=== PATIENT | female | born 1980 | race Caucasian/White ===

== ENCOUNTER 2022-01-22 09:09 | Outpatient (CLI) | payer BC, MEDICAID, SELFPAY ==
--- NOTE | 2022-01-22 10:15 | CRLHL7_ITS ---
For Patients: As a result of the Century Cures Act, medical imaging exams and procedure reports are released immediately into your electronic medical record. You may view this report before your referring provider. If you have questions, please contact your health care provider. INDICATION: DUB. 45 DAYS. *s/p endometrial biopsy procedure before ultrasound today COMPARISON: none TECHNIQUE: 2D arvizu scale and color Doppler images were acquired of the pelvis using a transabdominal and transvaginal approach. FINDINGS: Sonographic images demonstrate a normal size and smooth outer contour of the uterus. Uterus measures 8.2 cm in length by 3.8 cm in AP diameter by 4.5 cm in transverse dimension. The myometrium has a heterogeneous echotexture. Post endometrial biopsy changes. Endometrial thickness 10 millimeters. Cervical nabothian cysts. Hypoechoic circumscribed lesion within the posterior/left uterus extending into the endometrial canal measuring 1.3 x 1.1 x 1.1 cm. The right ovary measures 3.0 x 2.2 x 2.7 cm in size and the left ovary measures 1.9 x 1.7 x 1.6 cm. The ovaries demonstrate normal arterial and venous blood flow on color Doppler analysis. There are no suspicious fluid collections within the cul-de-sac. IMPRESSION: Submucosal fibroid measuring 1.3 cm. Post endometrial biopsy changes. Dictated by Sal Martins MD @ 01/22/2022 11:07:22 AM (Electronically Signed)
== END 2022-01-22 09:10 | disposition home or self-care (01) ==
LOC: US 09:10
PROVIDERS: Visit Provider Physician Assistant
DX: N93.8 Other specified abnormal uterine and vaginal bleeding (principal); D25.9 Leiomyoma of uterus, unspecified
CPT/HCPCS: 76830; 76856; 84443

== ENCOUNTER 2023-08-24 08:25 | Outpatient (CLI) | payer BC, SELFPAY ==
--- OUTSIDE RECORDS SUMMARY | 2023-08-25 08:17 | XMS_ITS | Referral Summary ---
Author Organization [facility] Address [address] [place] [address] Care Team Providers Care Production Support Engineer Name Role Phone No Ref-Primary, Physician Primary Care Provider Allergies No known active allergies Medications Medication Sig Dispensed Refills Start Date End Date Status buPROPion (WELLBUTRIN XL) 300 MG 24 hr tablet Take 300 mg by mouth daily 06/16/2021 Active methylphenidate (RITALIN) 10 MG tablet TAKE 1 TABLET BY MOUTH 2 TIMES DAILY. *FILL ON OR AFTER 02/18/21 02/24/2021 Active sulfamethoxazole-trim ethoprim (BACTRIM DS) 800-160 MG tablet Take 1 tablet by mouth 2 times daily 07/29/2021 Active lidocaine (XYLOCAINE) 2 % external gelIndications:Urethr itis Apply topically 3 times daily as needed for moderate pain 30 mL 3 08/02/2021 Active Active Problems Problem Noted Date Diagnosed Date CARDIOVASCULAR SCREENING; LDL GOAL LESS THAN 160 01/20/2014 Immunizations Name Administration Dates Next Due Influenza (H1N1) 01/04/2009 Social History Tobacco Use Types Packs/Day Years Used Date Smoking Tobacco: Never Smokeless Tobacco: Never Alcohol Use Standard Drinks/Week Comments Yes 0 (1 standard drink = 0.6 oz pur e alcohol) Adolescent Education Answer Date Record ed Getting School Help Needed Not on file 12/01 Sex and Gender Information Value Date Recorded Sex Assigned at Not on file Gender Identity Not on file Sexual Orientation Not on file Last Filed Vital Signs Vital Sign Reading Time Taken Comments Blood Pressure 118/84 08/02/2021 7:36 PM CDT Pulse 73 08/02/2021 7:36 PM CDT Temperature 35.9 ??C (96.7 ??F) 08/02/2021 7:36 PM CD T Respiratory Rate 16 01/17/2014 4:29 PM ORACLE DISTRIBUTION CONSULTANT Oxygen Saturation 98% 08/02/2021 7:36 PM CDT Inhaled Oxygen Concentration - - Weight 82.6 kg (182 lb 3 oz) 01/17/2014 4:29 PM ORACLE DISTRIBUTION CONSULTANT Height 157.5 cm (5' 2) 01/17/2014 4:29 PM ORACLE DISTRIBUTION CONSULTANT Body Mass Index 33.32 01/17/2014 4:29 PM ORACLE DISTRIBUTION CONSULTANT Plan of Treatment Not on file Care Teams Production Support Engineer Relationship Specialty Start Date End Date No Ref-Primary, Physician PCP - General 08/02/21
--- OUTSIDE RECORDS SUMMARY | 2023-08-25 08:17 | XMS_ITS | Clinical Summary ---
Author Organization [place] Address [address] [place] [address] Care Team Providers Care Dental Technician Name Role Phone No Ref-Primary, Physician Primary [...] Administration Dates Next Due Influenza (H1N1) 01/04/2009 Family History Medical History Relation Comments Hypertension Father Relation Status Comments Father Alive Mother Alive Social History Tobacco Use Types Packs/Day Years [...] T Respiratory Rate 16 01/17/2014 4:29 PM BEHAVIORAL HEALTH PROFESSIONAL Oxygen Saturation 98% 08/02/2021 7:36 PM CDT Inhaled Oxygen Concentration - - Weight 82.6 kg (182 lb 3 oz) 01/17/2014 4:29 PM BEHAVIORAL HEALTH PROFESSIONAL Height 157.5 cm (5' 2) 01/17/2014 4:29 PM BEHAVIORAL HEALTH PROFESSIONAL Body Mass Index 33.32 01/17/2014 4:29 PM BEHAVIORAL HEALTH PROFESSIONAL Plan of Treatment Health Maintenance Due Date Last Done Comments ADVANCE CARE PLANNING 1978 ANNUAL REVIEW OF HM ORDERS 1978 CT COLONOGRAPHY 1978 FIT 1978 FLEX SIG 1978 GLUCOSE 1978 MAMMO SCREENING 1978 YEARLY PREVENTIVE VISIT 1978 sDNA (Cologuard) 1978 COLONOSCOPY 1988 COLORECTAL CANCER SCREENING 1988 HIV SCREENING 1993 HEPATITIS C SCREENING 1996 HEPATITIS B IMMUNIZATION (1 of 3 - 19+ 3-dose series) 1997 PAP 08/12/1999 DTAP/TDAP/TD IMMUNIZATION (1 - Tdap) 08/12/2003 LIPID 2018 COVID-19 Vaccine (1 - 2022-2 4 season) 2022 PHQ-2 (once per calendar year) 2023 INFLUENZA VACCINE (#1) 2023 01/04/2009 HPV IMMUNIZATION Aged Out No longer e ligible based on patient's age to complete this topic IPV IMMUNIZATION Aged Out No longer e ligible based on patient's age to complete this topic MENINGITIS IMMUNIZATION Aged Out No l onger eligible based on patient's age to complete this topic Pneumococcal Vaccine: Pediat rics (0 to 5 Years) and At-Risk Patients (6 to 64 Years) Aged Out No longer eligi ble based on patient's age to complete this topic RSV MONOCLONAL ANTIBODY Aged Out No l onger eligible based on patient's age to complete this topic Care Teams Dental Technician Relationship Specialty Start Date End Date No Ref-Primary, Physician PCP - General 08/02/21
== END 2023-08-24 08:26 | disposition home or self-care (01) ==
LOC: NFLDREF 08-25 08:15
PROVIDERS: PCP Physician Assistant Medical; Referring Provider Physician Assistant Medical; Visit Provider Physician Assistant Medical
DX: I10 Essential (primary) hypertension (principal); E66.01 Morbid (severe) obesity due to excess calories; Z68.41 Body mass index [BMI] 40.0-44.9, adult
CPT/HCPCS: 80053; 80061; 84443

== ENCOUNTER 2023-11-22 15:59 | Outpatient (CLI) | payer BC, SELFPAY ==
--- NOTE | 2023-11-22 16:00 | CRLHL7_ITS ---
For Patients: As a result of the Century Cures Act, medical imaging exams and procedure reports are released immediately into your electronic medical record. You may view this report before your referring provider. If you have questions, please contact your health care provider. CLINICAL HISTORY: Abnormal uterine bleeding TECHNIQUE: 2D arvizu scale and color Doppler images were acquired of the pelvis using a transvaginal approach. Comparison 01/22/2022 FINDINGS: Cervical nabothian cysts are present. The uterus measures 6.1 x 4.0 x 4.7 cm. The endometrial thickness is 1.5 cm. Hypoechoic lobular structure is present within the endometrium measuring 9 x 7 x 12 millimeters. The left ovary measures 2.5 x 1.4 x 1.5 cm in size and the right ovary measures 4.2 x 3.0 x 3.8 cm. The ovaries demonstrate normal arterial and venous blood flow on color Doppler analysis. There are no suspicious fluid collections within the cul-de-sac. Simple anechoic right ovarian cyst is present measuring 3.6 x 2.5 x 3.4 cm. IMPRESSION: Endometrial thickness 1.5 cm. Hypoechoic nodule within the endometrium measuring 1.2 cm, probable submucosal fibroid. Dictated by Sal Martins MD @ 11/23/2023 9:43:25 AM (Electronically Signed)
--- OUTSIDE RECORDS SUMMARY | 2023-11-22 16:01 | XMS_ITS | Clinical Summary ---
Author Organization [facility] Address [address] [place] [address] Care Team Providers Care Suggestion Clerk Name Role Phone No Ref-Primary, Physician Primary [...] T Respiratory Rate 16 01/17/2014 4:29 PM HOGSHEAD STOCK CLERK Oxygen Saturation 98% 08/02/2021 7:36 PM CDT Inhaled Oxygen Concentration - - Weight 82.6 kg (182 lb 3 oz) 01/17/2014 4:29 PM HOGSHEAD STOCK CLERK Height 157.5 cm (5' 2) 01/17/2014 4:29 PM HOGSHEAD STOCK CLERK Body Mass Index 33.32 01/17/2014 4:29 PM HOGSHEAD STOCK CLERK Plan of Treatment Health Maintenance Due Date [...] IMMUNIZATION (1 - Tdap) 08/12/2003 LIPID 2018 PHQ-2 (once per calendar year) 2023 COVID-19 Vaccine (1 - 2022-2 4 season) 2023 INFLUENZA VACCINE (#1) 2023 01/04/2009 HPV [...] age to complete this topic Care Teams Suggestion Clerk Relationship Specialty Start Date End Date No Ref-Primary, Physician PCP - General 08/02/21
--- OUTSIDE RECORDS SUMMARY | 2023-11-22 16:01 | XMS_ITS | Referral Summary ---
Author Organization [facility] Address [address] [place] [address] Care Team Providers Care Cadd Operator Name Role Phone No Ref-Primary, Physician Primary [...] T Respiratory Rate 16 01/17/2014 4:29 PM FRUIT FARMWORKER Oxygen Saturation 98% 08/02/2021 7:36 PM CDT Inhaled Oxygen Concentration - - Weight 82.6 kg (182 lb 3 oz) 01/17/2014 4:29 PM FRUIT FARMWORKER Height 157.5 cm (5' 2) 01/17/2014 4:29 PM FRUIT FARMWORKER Body Mass Index 33.32 01/17/2014 4:29 PM FRUIT FARMWORKER Plan of Treatment Not on file Care Teams Cadd Operator Relationship Specialty Start Date End Date No Ref-Primary, Physician PCP - General 08/02/21
== END 2023-11-22 16:00 | disposition home or self-care (01) ==
LOC: US 15:59
PROVIDERS: PCP Physician Assistant Medical; Visit Provider Obstetrics & Gynecology
DX: N93.9 Abnormal uterine and vaginal bleeding, unspecified (principal); R93.89 Abnormal findings on diagnostic imaging of other specified body structures
CPT/HCPCS: 76830; 84146

== ENCOUNTER 2023-12-29 08:17 | Day surgery (SDC) | payer BC, SELFPAY ==
--- OUTSIDE RECORDS SUMMARY | 2023-12-29 08:21 | XMS_ITS | Referral Summary ---
Author Organization [facility] Address [address] [place] [address] Care Team Providers Care Elementary School Teacher'S Aide Name Role Phone No Ref-Primary, Physician Primary Care Provider Allergies No known active allergies Medications buPROPion (WELLBUTRIN XL) 300 MG 24 hr tablet Take 300 mg by mouth daily 2 Active methylphenidate (RITALIN) 10 MG tablet TAKE 1 TABLET BY MOUTH 2 TIMES DAILY. *FILL ON OR AFTER 02/18/21 2 Active sulfamethoxazol e-trimethoprim (BACTRIM DS) 800-160 MG tablet Take 1 tablet by mouth 2 times daily 2 Active lidocaine (XYLOCAINE) 2 % external gelIndications: Urethritis Apply topically 3 times daily as needed for moderate pain 30 mL 3 2 Active Active Problems Problem Noted Date Diagnosed [...] School Help Needed Not on file 12/01 Comments No Sex and Gender Information Value Date Recorded Sex Assigned at Not on file Legal Sex Female 5:06 AM MATERIAL COMBINER Gender Identity Not on file Sexual Orientation Not on file Last Filed Vital Signs Vital Sign Reading Time Taken Comments Blood Pressure 118/84 08/02/2021 7:36 PM CDT Pulse 73 08/02/2021 7:36 PM CDT Temperature 35.9 ??C (96.7 ??F) 08/02/2021 7:36 PM CD T Respiratory Rate 16 01/17/2014 4:29 PM MATERIAL COMBINER Oxygen Saturation 98% 08/02/2021 7:36 PM CDT Inhaled Oxygen Concentration - - Weight 82.6 kg (182 lb 3 oz) 01/17/2014 4:29 PM MATERIAL COMBINER Height 157.5 cm (5' 2) 01/17/2014 4:29 PM MATERIAL COMBINER Body Mass Index 33.32 01/17/2014 4:29 PM MATERIAL COMBINER Plan of Treatment Not on file Insurance [place] Care Teams Elementary School Teacher'S Aide Relationship Specialty Start Date End Date No Ref-Primary, Physician PCP - General 08/02/21
--- OUTSIDE RECORDS SUMMARY | 2023-12-29 08:21 | XMS_ITS | Encounter Summary ---
Author Organization [facility] Address [address] [address] Care Team Providers Care Sheet Rock Applicator Name Role Phone Bam Sierra MD Primary Care Provider Papa hathaway Reason for Referral * Consult/Transfer Care (Routine) - New Request Specialty Diagnoses / Procedures Referred By Tobi sky Referred To Contact Diagnoses Abrasion of right cornea, initial encounter Monica Thakkar PA-C [address] [place] [address] Referral ID Status Reason Start Date Expiration Date V isits Requested Visits Authorized [id number] New Request 11/28/2023 02/26/2025 1 1 Scheduling Instructions Your provider has recommended an appointment with [facility]. You may call [phone] for help scheduling your appointment. If your insurance has a separate vision plan, routine eye care may not be covered at [facility]. Please verify coverage with your medical insurance prior to your eye examination with us. If you discover you do not have coverage for routine eye care, please reach out to us to discuss your options. Question Answer Appointment Urgency? Within 1 Week (Urgent) Reason for visit? cat scratch of right eye Reason for Visit * Reason Comments INJURY, EYE Encounter Details Date Type Department Care Team (Late st Contact Info) Description 11/28/2023 12:40 PM CDT Office Visit Cassandra Simpson [facility] [address] [place] [address] Monica Thakkar PA-C [address] [place] [address] Abrasion of right cornea, initial encounter Social History Tobacco Use Types Packs/Day Years Used Date Smoking Tobacco: Never Sex and Gender Information Value Date Recorded Sex Assigned at Not on file Gender Identity Not on file Sexual Orientation Not on file documented as of this encounter Last Filed Vital Signs Vital Sign Reading Time Taken Comments Blood Pressure 164/110 11/28/2023 12:28 PM CDT Pulse 76 11/28/2023 12:28 PM CDT Temperature 36.5 ??C (97.7 ??F) 11/28/2023 12:28 PM C DT Respiratory Rate 16 11/28/2023 12:28 PM CDT Oxygen Saturation 100% 11/28/2023 12:28 PM CDT Inhaled Oxygen Concentration - - Weight - - Height - - Body Mass Index - - documented in this encounter Progress Notes * Monica Thakkar PA-C - 11/28/2023 12:40 PM CDT Nurse Triage Note Sx: Patient had a cat scratch her RIGHT eye. Area was at first reddened and swollen, that has improved. However pain increases significantly when laying down (patient wasn't able to sleep last night). Patient wants eye evaluated. Initially, she had light sensitivity but this has improved. Does NOT wear contact lenses. Home Tx: Cleansed with plain water RMH: Patient does have pre-existing eye condition, but unsure of name - it is rare, but patient hashad it previously evaluated and told benign. Patient requests an excuse letter for work/school: No Provider Note SUBJECTIVE: Diana Mahoney is a 43 y.o.female who comes in today after her cat scratched her last night in the right eye. She says it 1st the area was red and swollen however the pain started increasing significantly when laying down. She was not able to sleep last night because of it she said shedid have some light sensitivity but that has improved. She does not wear contacts. She cleansed out the eye with plain water. Past Medical history: Patient Active Problem List Diagnosis (none) - all problems resolved or deleted Social History: Social History Socioeconomic History Marital status: Spouse name: Not on file Number of children: Not on file Years of education: Not on file Highest education level: Not on file Occupational History Not on file Tobacco Use Smoking status: Never Smokeless tobacco: Not on file Vaping Use Vaping status: Never Used Substance and Sexual Activity Alcohol use: Not on file Drug use: Not on file Sexual activity: Not on file Other Topics Concern Not on file Social History Narrative Not on file Social Determinants of Health Financial Resource Strain: Not on file Food Insecurity: Not on file Transportation Needs: Not on file Physical Activity: Not on file Stress: Not on file Social Connections: Not on file Intimate Partner Violence: Not on file Housing Stability: Not on file Adverse Drug Reactions: Patient has no known allergies. Medications: buPROPion, methylphenidate, metoprolol succinate, moxifloxacin, unknown medication, and valACYclovir OBJECTIVE: Vital Signs: BP (!) 164/110 (BP Location: Left Arm, BP Cuff Size: Regular - Long) Pulse 76 Temp36.5 ??C (97.7 ??F) (Oral) Resp 16 SpO2 100% No General: Well-appearing. Eyes: Right eye is injected and watery. PERRLA EOMI bilaterally red reflex present bilaterally. Ears: Normal pinnae. Nose: Patent. Respiratory: Normal respiratory effort. ASSESSMENT: 1. Abrasion of right cornea, initial encounter . PLAN: Patient here today with right eye pain after being scratched in the eye by her cat last night. Fluorescein stain was done and did show uptake in the middle of the cornea. Patient was given 1 drop of tetracaine which did help immediately improve her pain. I am discharging her on Vigamox eyedrops as written below. Referral for our eye department if pain is worsening otherwise she should do Tylenol or ibuprofen. Patient understands and agrees the plan today. The patient was discharged ambulatory and in stable condition. RTC p.r.n. Medications Prescribed this Visit Disp Refills Start End moxifloxacin (VIGAMOX) 0.5 % eye drop solution 3 mL 1 11/28/2023 12/05/2023 Place 1 Drop into right eye three times a day for 7 days. Right Eye documented in this encounter Nursing Notes * Mariola Araujo RN - 11/28/2023 12:40 PM CDT Sx: Patient had a cat scratch her RIGHT eye. Area was at first reddened and swollen, that has improved. However pain increases significantly when laying down (patient wasn't able to sleep last night). Patient wants eye evaluated. Initially, she had light sensitivity but this has improved. Does NOT wear contact lenses. Home Tx: Cleansed with plain water RMH: Patient does have pre-existing eye condition, but unsure of name - it is rare, but patient hashad it previously evaluated and told benign. Patient requests an excuse letter for work/school: No documented in this encounter Plan of Treatment Scheduled Referrals Name Type Priority Associated Diagnoses Orde r Schedule Eye Care Consult-Adult/Peds Referral Routine Abrasion of right cornea, initial encounter Ordered: 11/28/2023 documented as of this encounter Visit Diagnoses Diagnosis Abrasion of right cornea, initial encounter documented in this encounter Care Teams Sheet Rock Applicator Relationship Specialty Start Date End Date Bam Sierra MD PCP - General 05/16/10 documented as of this encounter
--- OUTSIDE RECORDS SUMMARY | 2023-12-29 08:21 | XMS_ITS | Clinical Summary ---
Author Organization [facility] Address [address], [place] [address] Care Team Providers Care Automobile Leasing Supervisor Name Role Phone Bam Sierra MD Primary Care Provider Papa hathaway Source Comments You are receiving this document as you are listed as the primary care provider,follow-up provider, or the patient has been referred to you for consultation.This is in compliance with the Medicare and[facility] EHR Incentive Program,which states Providers who transition their patient to another setting of careor provider of care or refers their patient to another provider of care shouldprovide summary care record for each transition of care or referral. [facility] Allergies No known active allergies Medications Medication Sig Dispensed Refills Start Date End Date Status UNKNOWN MEDICATION Indications: PN: 09/05/2008 Active UNKNOWN MEDICATION Indications: PN: 09/07/2008 Active buPROPion (WELLBUTRIN XL) 300 MG 24 hour release tablet Take 1 Tablet (300 mg) by mouth daily. 10/24/2023 Active methylphenidate (CONCERTA) 27 MG controlled release tablet Take 1 Tablet (27 mg) by mouth every morning. 10/30/2023 Active metoprolol succinate (TOPROL XL) 25 MG 24 hour release tablet Take 1 Tablet (25 mg) by mouth daily. 10/20/2023 Active valACYclovir (VALTREX) 1 g tablet Take 4 Tablets (4,000 mg) by mouth once. 11/22/2023 Active moxifloxacin (VIGAMOX) 0.5 % eye drop solution Place 1 Drop into right eye three times a day for 7 days. 3 mL 1 11/28/2023 12/05/2023 Active Problems No known active problems Resolved Problems Problem Noted Date Diagnosed Date Resolved Date Varicella 03/12/2004 05/12/2004 Overview (10/06/2016): LW Onset: childhood ; Varicella Zoster Encounters Date Type Department Care Team Description 11/28/2023 12:40 PM CDT Office Visit Cassandra Simpson [facility] [address] [place] [address] Monica Thakkar PA-C Abrasion of right cornea, initial encounter from Last 3 Months Immunizations Name Administration Dates Next Due Flu Vac Preserv Free (3+yrs) 03/12/2004 HepA Adult (19+ yrs) 03/12/2004 HepB Adult (Engerix-B, 20+ yrs, 3 dose series) 0 03/12/2004,02/13/2002 IPV (Polio) 03/12/2004 Td 10/25/2001 Typhoid (Typhim Vi, IM) 03/12/2004 Social History Tobacco Use Types Packs/Day Years [...] CDT Temperature 36.5 ??C (97.7 ??F) 11/28/2023 1 2:28 PM CDT Respiratory Rate 16 11/28/2023 12:2 8 PM CDT Oxygen Saturation 100% 11/28/2023 12: 28 PM CDT Inhaled Oxygen Concentration - - Weight 98 kg (215 lb 15.8 oz) 09/05/2008 1:41 PM CDT C: 98.0kg Height 156.8 cm (5' 1.75) 05/02/2008 4:02 PM CD T C: 156.8cm Body Mass Index 39.83 05/02/2008 4:02 PM CDT Plan of Treatment Health Maintenance Due Date Last Done Comments Colon Cancer Screening Plan Due 1980 Hep C Screening (Preventive Services) 1978 Mammogram 1978 HIV Screening (Preventive Services) 1994 Adult Preventive Visit 1996 HepB (3) 05/07/2004 03/12/2004, 02/13/2002 HepA (2 of 2 - Risk 2-dose series) 09/09/2004 03/12/2004 Cervical Cancer Screening Due 05/03/2008, 10/25/2001 Cholesterol 08/12/2023 COVID-19 Vaccine (1 - 2023-2 5 season) 2023 Influenza (#1) 2023 03/12/2004 Zoster/Shingles (1 of 2) 2028 DTaP/Tdap/Td (2 - Tdap) 07/02/2032 07/03/19, 10/25/2001 IPV (Polio) Aged Out 03/12/2004 No longer eligi ble based on patient's age to complete this topic HPV Vaccine Aged Out No longer eligi ble based on patient's age to complete this topic Hib Aged Out No longer eligi ble based on patient's age to complete this topic Infant RSV Aged Out No longer eligi ble based on patient's age to complete this topic MCV4 Aged Out No longer eligi ble based on patient's age to complete this topic Pneumococcal Aged Out No longer eligi ble based on patient's age to complete this topic Procedures Procedure Name Priority Date/Time Associated Diagnosis Comments ANATOMICAL PATH LIQUID BASED Routine 05/02/2008 7:17 AM CDT from Last 3 Months or Most Recently Relevant to Health Maintenance Results * Pap Smear (05/02/2008 7:17 AM CDT) PAP Smear Liquid Based SEE TEXT No normal range HP CONVERSION Comment: Patient: ERNESTO BUCK ? CERVICAL CYTOLOGY REPORT Pathology # ??[id number] ?Date Obtained: ? Date Received: CYTOLOGIC IMPRESSION: Negative for intraepithelial lesion or malignancy. Verified 05/07/08 by: ??SN ? (electronic signature) ? ADDITIONAL DATA LMP: CLINICAL HIST LIQUID BASED PAP CERVICAL SPECIMEN ADEQUACY: ?? Satisfactory. ENDOCERVICAL CELLS: ??Present. 05/02/2008 7:17 AM CDT Margaux Pelletier MD LAB_1 HP CONVERSION from Last 3 Months or Most Recently Relevant to Health Maintenance Care Teams Automobile Leasing Supervisor Relationship Specialty Start Date End Date Bam Sierra MD PCP - General 05/16/10
--- OUTSIDE RECORDS SUMMARY | 2023-12-29 08:21 | XMS_ITS | Clinical Summary ---
Author Organization [facility] Address [address] [place] [address] Care Team Providers Care High Lift Mule Operator Name Role Phone No Ref-Primary, Physician [...] on file Legal Sex Female 5:06 AM ASSISTANT PRESS OPERATOR Gender Identity Not on file Sexual Orientation Not on file Last Filed Vital Signs Vital Sign Reading Time Taken Comments Blood Pressure 118/84 08/02/2021 7:36 PM CDT Pulse 73 08/02/2021 7:36 PM CDT Temperature 35.9 ??C (96.7 ??F) 08/02/2021 7:36 PM CD T Respiratory Rate 16 01/17/2014 4:29 PM ASSISTANT PRESS OPERATOR Oxygen Saturation 98% 08/02/2021 7:36 PM CDT Inhaled Oxygen Concentration - - Weight 82.6 kg (182 lb 3 oz) 01/17/2014 4:29 PM ASSISTANT PRESS OPERATOR Height 157.5 cm (5' 2) 01/17/2014 4:29 PM ASSISTANT PRESS OPERATOR Body Mass Index 33.32 01/17/2014 4:29 PM ASSISTANT PRESS OPERATOR Plan of Treatment Health Maintenance Due Date [...] calendar year) 2023 COVID-19 Vaccine (1 - 2023-2 5 season) 2023 INFLUENZA VACCINE (#1) 2023 01/04/2009 RSV VACCINE (1 - 1-dose 75+ series) 2053 HPV IMMUNIZATION Aged Out No longer e [...] on patient's age to complete this topic Insurance [place] Care Teams High Lift Mule Operator Relationship Specialty Start Date End Date No Ref-Primary, Physician PCP - General 08/02/21
[2023-12-29 08:28] VITALS: BMI 44.3
[2023-12-29 08:39] VITALS: BP 155/107; PULSE 79; RESP 16; TEMP 36.6; O2SAT 98
[2023-12-29] MEDS: SODIUM CHLORIDE 0.9 % (FLUSH) 10 ML SYRINGE IVF (08:40)
[2023-12-29 08:55] LABS: Hemoglobin* 13.5 gm/dL (12.0-16.0)
[2023-12-29 08:56] LABS: Ur HCG Qualitative* Negative (Negative)
[2023-12-29 09:20] LABS: Creatinine* 0.7 mg/dL (0.5-1.5); Est. Creatinine Clearance* 80.27; Estimated Glomerular Filt Rate 109 ml/min
[2023-12-29] MEDS: LIDOCAINE 1%-EPI 1:100,000 20 ML INFILTRATI (11:42)
[2023-12-29 12:00] VITALS: BP 107/64; PULSE 67; RESP 16; TEMP 36.4; O2SAT 95
--- NOTE | 2023-12-29 12:07 | W.ANESCHARGE ---
Anesthesia Charges Start Date/Time Anesthesia Start Date: 12/29/23 Anesthesia Start Time: 11:16 Stop Date/Time Anesthesia Stop Date: 12/29/23 Anesthesia Stop Time: 12:05
[2023-12-29 12:15] VITALS: BP 129/77; PULSE 63; RESP 16; O2SAT 96
[2023-12-29 12:30] VITALS: BP 147/86; PULSE 55; RESP 16; O2SAT 95
[2023-12-29 12:45] VITALS: BP 141/82; PULSE 59; RESP 16; O2SAT 97
--- NOTE | 2023-12-29 12:51 | W.PM.H&PU ---
History & Physical Update History & Physical Update H&P Reviewed and patient assessed: No changes noted
--- NOTE | 2023-12-29 12:52 | P.GYNPRC_ITS ---
Procedure Note Time Seen by Provider: 11:00 Date of procedure: 12/29/23 Will [facility] bill your pro fee for this procedure?: Yes Pre-op diagnosis: 1. Abnormal uterine bleeding - Leiomyoma Post-op diagnosis: 2. Abnormal uterine bleeding - Polyps Procedure: 1. Hysteroscopy 2. Dilation and curettage 3. Polypectomy 4. Mirena IUD insertion Anesthesia: MAC and local Complications: None Surgeon: Jennie Bourgeois MD IV fluids (mL): 0 Urine Output (mL): 45 Pathology: specimen obtained, sent to pathology (Endometrial curetting and polyps ) Condition: stable Disposition: PACU Procedure Description: Estimated blood loss: <5 mL Findings: Exam under anesthesia: Cervix palpates normal. Uterus: anteverted position, 6 week size, mobile, without nodularity/masses palpable. Adnexa were without fullness or nodularity. On hysteroscopy: Thickened endometrial and multiple endometrial polyps noted. Procedure: Diana was taken to the operating where conscious sedation was found to be adequate. She was placed in the dorsal lithotomy position. An exam under anesthesia was performed with findings stated above. She was then prepped and draped in normal sterile manner. A bivalve metal speculum was placed in the vaginal canal. The cervix and vaginal canal appear normal. A paracervical bl ock was placed using 1% lidocaine with epinephrine: 5 mL injected at the 4 and 8 o'clock positions on the cervix. The anterior lip of the cervix was then grasped with a long Allis. The cervix was dilated to Hegar 6. The uterus sounded to 7 cm. The hysteroscope advanced into the uterus and a diagnostic hysteroscopy was performed with findings stated above. Normal saline was used as the insuff lation medium. Soft tissue shaver was used to perform polypectomy and global curetting. The uterus and documented a normal appearing uterine cavity at the end of the procedure. Fluid deficit at the end of the procedure 190 mL. Total fluid: 2325 mL. The hysteroscope was removed from the uterus and cervix. Attention was then turned towards the IUD. The IUD is loaded into the insertion tube, inserted to the sounded depth, and the IUD is deployed. Insertion tube was removed. Strings are trimmed to 3 cm. There were no complications with insertion. Hysteroscope was used to confirm Mirena IUD position. Hysteroscopy and Allis clamp were removed from the uterus and cervix. Excellent hemostasis noted. Nothing was used for hemostasis. The patient tolerated the procedure well. Sponge, lap and instruments counts were correct at the end of the procedure. The patient was awakened from anesthesia and taken to the recovery area in stable condition. Surgical debrief performed at the end of the procedure.
== END 2023-12-29 13:07 | disposition home or self-care (01) ==
PROVIDERS: PCP Physician Assistant Medical; Visit Provider Obstetrics & Gynecology
PROC: 0UDB8ZZ Extraction of Endometrium, Via Natural or Artificial Opening Endoscopic (ICD-10-PCS; CPT 58558; principal; 2023-12-29 09:30)
DX: N92.0 Excessive and frequent menstruation with regular cycle (principal); N84.0 Polyp of corpus uteri; Z30.430 Encounter for insertion of intrauterine contraceptive device; I10 Essential (primary) hypertension
CPT/HCPCS: 58558; 58300; 00952; 36415; 81025; 82565; 85018; 86850; 86900; 86901; 88305; C1782; J1100; J1885; J2405; J2704; J3010; J7298